=== PATIENT | male | born 1990 | race Two or more races ===

== ENCOUNTER 2023-08-10 18:56 | Emergency (ER) | payer MEDICAID ==
[~2023-08-10] VITALS: Ht 165.1 cm; Wt 77.3 kg
[2023-08-10 19:02] VITALS: BP 133/76; PULSE 62; RESP 16; TEMP 98.4; O2SAT 98
[2023-08-10] MEDS ORDERED: HYDR-3965 PO (19:46)
[2023-08-10] MEDS: HYDROcodone/acetaminophen 5mg/325mg tablet PO ONE (20:01)
[2023-08-10] MEDS ORDERED: IBUP-1984 PO (20:09)
[2023-08-10] MEDS: ibuprofen 200mg tablet PO ONE (20:10)
== END 2023-08-10 20:13 | disposition home or self-care (01) ==
LOC: ER 18:57
DX: K08.89 Other specified disorders of teeth and supporting structures (principal); Z79.899 Other long term (current) drug therapy
CPT/HCPCS: 99282